=== PATIENT | male | born 1960 | race Caucasian/White ===

== ENCOUNTER → 2022-06-07 12:23 | Outpatient (CLI) | payer OTHER, SELFPAY ==
--- NOTE | ~2022-06-07 | CT_ITS ---
EXAMINATION: CT abdomen wo/w con DATE: 06/07/2022 13:10 INDICATION: Hepatocellular carcinoma. TECHNIQUE: Computed tomography (CT) of the abdomen was performed without and with 100 mL Omnipaque 35 0 intravenous contrast. Automated exposure control and iterative reconstruction technique were employ ed. The dose-length product was 2181.06 mGy-cm. COMPARISON: None. FINDINGS: The visualized portions of the lung bases demonstrate groundglass opacities and smooth sept al thickening, consistent with mild pulmonary edema. Partially visualized is a 2.4 x 1.6 cm nodule in right lower lobe. There is a 4 mm nodule in right lower lobe. No pleural effusion. There is left atr ial enlargement of the heart. 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 No pericardial effus ion. Retained epicardial pacer wires are noted. There is liver surface nodularity, consistent with ci rrhosis. There are multiple nonenhancing masses in left hepatic lobe. There is a 5.4 x 4.0 cm hypoden se mass with hyperdense center in left hepatic lobe. There are gallstones in the gallbladder, which i s contracted. The spleen, pancreas, and adrenal glands are normal. There is cortical thinning of the kidneys. There is a 10 mm cyst in right kidney. There is an umbilical hernia containing fat. There is diverticulosis of the colon without evidence of diverticulitis. The appendix is normal. There is a s mall sliding hiatal hernia. Paraesophageal varices are noted. There are no pathologically enlarged ly mph nodes. There is no free intraperitoneal fluid. There is severe lower lumbar spondylosis. IMPRESSION: 1. Mild pulmonary edema. 2. Partially visualized right lower lobe pulmonary nodule, which is indeterminate for malignancy. [facility] CT is recommended if one has not been performed elsewhere. 3. 5.4 x 4.0 cm mass in left hepatic lobe with central hyperattenuation, likely treatment change incl uding hematoma. 4. Multiple nonenhancing masses in left hepatic lobe, likely treatment change. 5. Cirrhosis of the liver with portal venous hypertension. 6. Umbilical hernia containing fat. Reviewed, dictated and finalized at location A. IMPRESSION: 1. Mild pulmonary edema. 2. Partially visualized right lower lobe pulmonary nodule, which is indetermina te for malignancy. Chest CT is recommended if one has not been performed elsewh ere. 3. 5.4 x 4.0 cm mass in left hepatic lobe with central hyperattenuation, likely treatment change including hematoma. 4. Multiple nonenhancing masses in left hepatic lobe, likely treatment change. 5. Cirrhosis of the liver with portal venous hypertension. 6. Umbilical hernia containing fat.
[2022-06-07 12:58] LABS: Estimated Glomerular Filt Rate > 60
== END ==
DX: C22.0 Liver cell carcinoma (principal); R10.12 Left upper quadrant pain; K76.9 Liver disease, unspecified; J81.1 Chronic pulmonary edema; R91.8 Other nonspecific abnormal finding of lung field; K74.60 Unspecified cirrhosis of liver; R16.0 Hepatomegaly, not elsewhere classified; K42.9 Umbilical hernia without obstruction or gangrene
CPT/HCPCS: 74170; Q9967